=== PATIENT | male | born 1975 | race African-American/Black ===

== ENCOUNTER 2024-10-24 20:21 | Emergency (ER) | payer SELFPAY ==
[~2024-10-24] VITALS: Ht 175.3 cm; Wt 155.5 kg
[2024-10-24 20:39] VITALS: O2SAT 100
[2024-10-24 21:55] VITALS: BP 172/87; PULSE 88; RESP 16; TEMP 36.8; O2SAT 99
[2024-10-25] MEDS ORDERED: NAPH15DR67 OP (01:35)
[2024-10-25] MEDS ORDERED: OCUFLX EACHEYE (01:35)
== END 2024-10-25 02:04 | disposition home or self-care (01) ==
LOC: ER 20:34
DX: H40.89 Other specified glaucoma (principal); H10.13 Acute atopic conjunctivitis, bilateral; I10 Essential (primary) hypertension; Z88.6 Allergy status to analgesic agent
CPT/HCPCS: 99283